=== PATIENT | female | born 1960 | race Hispanic/Latino ===

== ENCOUNTER 2018-09-19 18:32 | Emergency (ER) | payer SELFPAY ==
--- NOTE | 2018-09-19 20:36 | RAD REPORT ---
EXAM DESCRIPTION: RAD - Knee Right 3 View - 09/19/2018 8:20 pm CLINICAL HISTORY: Pain;Swelling COMPARISON: No comparisons FINDINGS: No acute fracture or dislocation of the right knee is seen. Trace suprapatellar joint flui d.
--- NOTE | 2018-09-19 21:03 | EDPHYS ---
Physician Documentation [facility] Name: Danielle Hua Age: 57 yrs Sex: Female : 1960 Arrival Date: 09/19/2018 Time: 18:35 Bed 15 Private MD: None, None ED Physician Kade Tavarez HPI: 09/19 19:51 This 57 yrs old Female presents to ER via Ambulatory with complaints of Right pm1 Knee Pain. 19:51 The patient presents with pain, swelling. The complaints affect the right knee. pm1 Context: The problem was sustained at home, resulted from Overuse , the patient can fully bear weight, the patient is able to ambulate, Problem is a result from a previous injury: No. Onset: The symptoms/episode began/occurred 3 month(s) ago. Modifying factors: The symptoms are alleviated by elevating leg, compression. the symptoms are aggravated by weight bearing, bending knee. Associated signs and symptoms: Pertinent negatives calf tenderness, fever, numbness, tingling. Treatment prior to arrival includes: adelia wrap, elevation of the extremity. Severity of symptoms: in the emergency department the symptoms are actually worse. The patient has not experienced similar symptoms in the past. Patient twisted her left knee and started having to rely on right leg to bear weight. Believes that overuse of right leg has lead towards pain to right knee . Historical: - Allergies: 19:03 No Known Allergies; aj1 - Home Meds: 19:03 None [Active]; aj1 - PMHx: 19:03 None; aj1 - PSHx: 19:03 pins in shoulder; Hysterectomy; aj1 - Immunization history:: Flu vaccine is not up to date. - Social history:: Smoking status: Patient/guardian denies using tobacco. - Ebola Screening: : Patient denies travel to an Ebola-affected area in the 21 days before illness onset. ROS: 19:51 Constitutional: Negative for fever, chills, and weight loss, Eyes: Negative for injury, pm1 pain, redness, and discharge, ENT: Negative for injury, pain, and discharge, Neck: Negative for injury, pain, and swelling, Cardiovascular: Negative for chest pain, palpitations, and edema, Respiratory: Negative for shortness of breath, cough, wheezing, and pleuritic chest pain, Abdomen/GI: Negative for abdominal pain, nausea, vomiting, diarrhea, and constipation, Back: Negative for injury and pain, : Negative for injury, bleeding, discharge, and swelling. 19:51 Skin: Negative for injury, rash, and discoloration, Neuro: Negative for headache, weakness, numbness, tingling, and seizure. 19:51 MS/extremity: Positive for pain, of the right knee, Negative for paresthesias, tingling. Exam: 19:51 Constitutional: This is a well developed, well nourished patient who is awake, alert, pm1 and in no acute distress. Head/Face: Normocephalic, atraumatic. Chest/axilla: Normal chest wall appearance and motion. Nontender with no deformity. No lesions are appreciated. Cardiovascular: Regular rate and rhythm with a normal S1 and S2. No gallops, murmurs, or rubs. Normal PMI, no JVD. No pulse deficits. Respiratory: Lungs have equal breath sounds bilaterally, clear to auscultation and percussion. No rales, rhonchi or wheezes noted. No increased work of breathing, no retractions or nasal flaring. Abdomen/GI: Soft, non-tender, with normal bowel sounds. No distension or tympany. No guarding or rebound. No evidence of tenderness throughout. Back: No spinal tenderness. No costovertebral tenderness. Full range of motion. Skin: Warm, dry with normal turgor. Normal color with no rashes, no lesions, and no evidence of cellulitis. 19:51 Musculoskeletal/extremity: Extremities: grossly normal except: noted in the right knee: tenderness, Pain with flexion greater than 90 degrees. 19:51 Neuro: Orientation: is normal, Motor: is normal, moves all fours. Vital Signs: 19:03 BP 188 / 92; Pulse 65; Resp 18; Temp 97.0; Pulse Ox 99% on R/A; Weight 120.2 kg (R); aj1 Height 5 ft. 7 in. (170.18 cm) (R); Pain 10/10; 19:03 Body Mass Index 41.50 (120.20 kg, 170.18 cm) aj1 MDM: 19:33 Patient medically screened. pm1 19:55 Data reviewed: vital signs. Data interpreted: Pulse oximetry: on room air is 99 %. pm1 Interpretation: normal. 21:01 Counseling: I had a detailed discussion with the patient and/or guardian regarding: the pm1 historical points, exam findings, and any diagnostic results supporting the discharge/admit diagnosis, radiology results, the need for outpatient follow up, to return to the emergency department if symptoms worsen or persist or if there are any questions or concerns that arise at home. 21:05 ED course: Offered patient crutches. Refused she has some a home. pm1 09/19 20:02 Order name: Knee Right 3 View XRAY; Complete Time: 20:59 pm1 Administered Medications: No medications were administered Disposition: 09/19/18 21:02 Discharged to Home. Impression: Pain in right knee, Effusion, right knee. - Condition is Stable. - Discharge Instructions: Joint Pain, Knee Effusion, Knee Pain. - Prescriptions for Tylenol- Codeine #3 300-30 mg Oral Tablet - take 2 tablets by ORAL route every 6 hours As needed; 20 tablet. Diclofenac Sodium 75 mg Oral Tablet Sustained Release - take 1 tablet by ORAL route 2 times per day; 30 tablet. - Work release form, Medication Reconciliation Form, Thank You Letter, Prescription Opioid Use form. - Follow up: Emergency Department; When: As needed; Reason: Worsening of condition. Follow up: Sushil Skaggs MD; When: 2 - 3 days; Reason: Recheck today's complaints, Continuance of care, Re-evaluation by your physician. - Problem is new. - Symptoms have improved. Addendum: 09/22/2018 07:26 Co-signature as Attending Physician, Kade Tavarez MD I agree with the assessment and c graham plan of care. Signatures: Dispatcher [employer] [facility] Asia Hall, RN RN aj1 Kade Tavarez MD MD cha Krenek, Amber, RN RN ak1 Cristopher Qureshi, CUSTOMER QUALITY SPECIALIST CUSTOMER QUALITY SPECIALIST pm1 Corrections: (The following items were deleted from the chart) 09/19 20:22 19:38 Knee Left 3 View+RAD.RAD.BRZ ordered. [facility] 21:15 21:02 09/19/2018 21:02 Discharged to Home. Impression: Pain in right knee; Effusion, ak1 right knee. Condition is Stable. Forms are Medication Reconciliation Form, Thank You Letter, Antibiotic Education, Prescription Opioid Use. Follow up: Emergency Department; When: As needed; Reason: Worsening of condition. Follow up: Sushil Skaggs; When: 2 - 3 days; Reason: Recheck today's complaints, Continuance of care, Re-evaluation by your physician. Problem is new. Symptoms have improved. pm1
--- NOTE | 2018-09-19 21:03 | ER ---
Nurse's Notes [facility] Name: Danielle Hua Age: 57 yrs Sex: Female : 1960 Arrival Date: 09/19/2018 Time: 18:35 Bed 15 Private MD: None, None Diagnosis: Pain in right knee;Effusion, right knee Presentation: 09/19 19:02 Presenting complaint: Patient states: Right knee pain since March, denies injury to aj1 right knee. Transition of care: patient was not received from another setting of care. Onset of symptoms was March 2018. Risk Assessment: Do you want to hurt yourself or someone else? Patient reports no desire to harm self or others. Initial Sepsis Screen: Does the patient meet any 2 criteria? No. Patient's initial sepsis screen is negative. Does the patient have a suspected source of infection? No. Patient's initial sepsis screen is negative. Care prior to arrival: None. 19:02 Method Of Arrival: Ambulatory aj 19:02 Acuity: SILVIA 4 aj1 Triage Assessment: 19:03 General: Appears in no apparent distress. comfortable, Behavior is calm, cooperative, aj1 appropriate for age. Pain: Complains of pain in right knee Pain currently is 10 out of 10 on a pain scale. Neuro: Level of Consciousness is awake, alert, obeys commands. Cardiovascular: Patient's skin is warm and dry. Respiratory: Airway is patent Respiratory effort is even, unlabored, Respiratory pattern is regular, symmetrical. Historical: - Allergies: 19:03 No Known Allergies; aj1 - Home Meds: 19:03 None [Active]; aj1 - PMHx: 19:03 None; aj1 - PSHx: 19:03 pins in shoulder; Hysterectomy; aj1 - Immunization history:: Flu vaccine is not up to date. - Social history:: Smoking status: Patient/guardian denies using tobacco. - Ebola Screening: : Patient denies travel to an Ebola-affected area in the 21 days before illness onset. Screenin:48 Abuse screen: Denies threats or abuse. Denies injuries from another. Nutritional ak1 screening: No deficits noted. Tuberculosis screening: No symptoms or risk factors identified. Fall Risk None identified. Assessment: 19:46 General: Appears in no apparent distress. Behavior is calm, cooperative. Pain: ak1 Complains of pain in right knee. Neuro: No deficits noted. Cardiovascular: No deficits noted. Respiratory: No deficits noted. GI: No signs and/or symptoms were reported involving the gastrointestinal system. : No signs and/or symptoms were reported regarding the genitourinary system. EENT: No signs and/or symptoms were reported regarding the EENT system. Derm: No signs and/or symptoms reported regarding the dermatologic system. Musculoskeletal: Range of motion: limited in right knee Swelling present in right knee Reports pain in right knee. Vital Signs: 19:03 BP 188 / 92; Pulse 65; Resp 18; Temp 97.0; Pulse Ox 99% on R/A; Weight 120.2 kg (R); aj1 Height 5 ft. 7 in. (170.18 cm) (R); Pain 10/10; 19:03 Body Mass Index 41.50 (120.20 kg, 170.18 cm) aj1 ED Course: 18:35 Patient arrived in ED. mr 18:35 None, None is Private Physician. mr 19:03 Triage completed. aj1 19:03 Arm band placed on Patient placed in waiting room, Patient notified of wait time. aj1 19:29 Cristopher Qureshi, KIKO is PHCP. pm1 19:29 Kade Tavarez MD is Attending Physician. pm1 19:46 Milla Mclaughlin, DOMENIC is Primary Nurse. ak1 19:49 Patient has correct armband on for positive identification. Bed in low position. Call ak1 light in reach. Side rails up X 1. Pulse ox on. NIBP on. 19:49 No provider procedures requiring assistance completed. ak1 20:22 Knee Right 3 View XRAY In Process Unspecified. EDMS 21:01 Sushil Skaggs MD is Referral Physician. pm1 21:09 Patient did not have IV access during this emergency room visit. ak1 Administered Medications: No medications were administered Outcome: 21:02 Discharge ordered by . pm1 21:09 Discharged to home ambulatory. ak1 21:09 Condition: stable 21:15 Discharge instructions given to patient, Instructed on discharge instructions, follow ak1 up and referral plans. no drinking with medication, no driving heavy equipment, medication usage, Demonstrated understanding of instructions, follow-up care, medications, Prescriptions given X 2. 21:15 Patient left the ED. ak1 Signatures: Dispatcher [employer] Asia Monahan, RN RN aj1 Benjamin, Catie mr Milla Mclaughlin, RN RN ak1 Cristopher Qureshi, SET DESIGNER SET DESIGNER pm1
== END 2018-09-19 21:15 | disposition home or self-care (01) ==
LOC: ER 18:32
DX: M25.561 Pain in right knee (principal); M25.461 Effusion, right knee
CPT/HCPCS: 99283

== ENCOUNTER 2019-01-24 09:48 | Emergency (ER) | payer SELFPAY ==
[2019-01-24 10:14] LABS: Absolute Lymphocytes (CBC) 1.4 K/uL (0.7-4.9); Absolute Monocytes 0.6 K/uL (0.1-1.3); Absolute Neutrophil 3.9 K/uL (1.8-8.0); Basophils % 1.4 % (0-1.3); Eosinophils % 4.8 % (0-4.4); Hematocrit 31.5 % (36.0-45.0); Lymphocytes % 22.6 % (15.3-44.8); RBC Red Blood Cell Count 4.45 M/uL (3.86-4.86)
[2019-01-24 10:17] LABS: Protime INR 1.11
[2019-01-24] MEDS ORDERED: ASPIRIN 81 MG CHEWABLE TABLET ONE (10:20)
--- NOTE | 2019-01-24 10:24 | RAD REPORT ---
EXAM DESCRIPTION: Denise Single View01/24/2019 10:14 am CLINICAL HISTORY: Chest pain COMPARISON: none FINDINGS: The lungs appear clear of acute infiltrate. The heart is normal size IMPRESSION: No acute abnormalities displayed
[2019-01-24 10:27] LABS: ALT/SGPT 27 U/L (12-78); AST/SGOT 18 U/L (15-37); Albumin 3.6 g/dL (3.4-5.0); Alkaline Phosphatase 96 U/L (45-117); BUN Blood Urea Nitrogen 13 mg/dL (7-18); Bicarbonate 29 mmol/L (21-32); Bilirubin Direct 0.2 mg/dL (0-0.2); Bilirubin Total 0.6 mg/dL (0.2-1.0); Glucose Level 116 mg/dL (74-106); Magnesium 1.8 mg/dL (1.8-2.4); NT PRO-BNP 97 pg/mL (<125); Potassium 3.1 mmol/L (3.5-5.1); Protein, Total 7.6 g/dL (6.4-8.2); Sodium Level 142 mmol/L (136-145); Troponin (Emerg Dept Use Only) < 0.02 ng/mL (0.0-0.045)
--- NOTE | 2019-01-24 11:04 | RAD REPORT ---
EXAM DESCRIPTION: CT - Chest For Pe Angio - 01/24/2019 10:48 am CLINICAL HISTORY: Chest pain COMPARISON: None. TECHNIQUE: Dynamically enhanced axial 3 mm thick images of the chest were obtained during administra tion of <100> mL Isovue 370 IV contrast. Coronal and oblique reconstruction images were generated and reviewed. Exam utilizes a protocol for optimal evaluation of pulmonary arterial tree. Maximum intensity projections 3D imaging was utilized All CT scans are performed using dose optimization technique as appropriate and may include automated exposure control or mA/KV adjustment according to patient size. FINDINGS: A pulmonary embolus is not seen. A thoracic aortic aneurysm is not noted. A pleural effusion is not seen. A pericardial effusion is not seen. A lung consolidation is not present. Heart is mildly enlarged. Moderate hiatal hernia IMPRESSION: Negative for a pulmonary embolism.
[2019-01-24 11:20] LABS: Creatine Phosphokinase 231 U/L (26-192)
[2019-01-24] MEDS ORDERED: POTASSIUM CL SA 10 MEQ TAB PO ONE (11:42)
[2019-01-24] MEDS ORDERED: NA CHLORIDE 0.9% 1,000 ML ONE (11:43)
--- NOTE | 2019-01-24 14:46 | ER ---
Nurse's Notes [facility] Name: Danielle Hua Age: 58 yrs Sex: Female : 1960 Arrival Date: 01/24/2019 Time: 09:54 Bed 8 Private MD: Diagnosis: Chest pain, unspecified;Dizziness and giddiness Presentation: 01/24 09:54 Presenting complaint: EMS states: SOB, chest pressure, and dizziness x 1 hr. Transition hb of care: patient was not received from another setting of care. Onset of symptoms was January 24, 2019. Risk Assessment: Do you want to hurt yourself or someone else? Patient reports no desire to harm self or others. Initial Sepsis Screen: Does the patient meet any 2 criteria? No. Patient's initial sepsis screen is negative. Does the patient have a suspected source of infection? No. Patient's initial sepsis screen is negative. Care prior to arrival: None. 09:54 Method Of Arrival: EMS: [facility] hb 09:54 Acuity: SILVIA 3 hb Triage Assessment: 15:00 Respiratory: Reports Onset: The symptoms/episode began/occurred gradually, the patient rv has mild shortness of breath. 15:00 General: Appears in no apparent distress. rv Historical: - Allergies: 09:56 No Known Allergies; hb - Home Meds: 09:56 None [Active]; hb - PMHx: 09:56 None; hb - Immunization history:: Adult Immunizations up to date. - Social history:: Smoking status: Patient/guardian denies using tobacco. - Ebola Screening: : No symptoms or risks identified at this time. Screenin:59 Abuse screen: Denies threats or abuse. Denies injuries from another. Nutritional hb screening: No deficits noted. Tuberculosis screening: No symptoms or risk factors identified. Fall Risk None identified. Assessment: 10:00 General: Appears in no apparent distress. Behavior is calm, cooperative. Pain: Pain hb currently is 2 out of 10 on a pain scale. Neuro: Level of Consciousness is awake, alert, obeys commands, Oriented to person, place, time, situation. Cardiovascular: Capillary refill < 3 seconds Patient's skin is warm and dry. Rhythm is regular. Respiratory: Airway is patent Respiratory effort is even, unlabored, Respiratory pattern is regular, symmetrical, Breath sounds are clear bilaterally. GI: No signs and/or symptoms were reported involving the gastrointestinal system. : No signs and/or symptoms were reported regarding the genitourinary system. EENT: No signs and/or symptoms were reported regarding the EENT system. Derm: Skin is intact, is healthy with good turgor, Skin is pink, warm \T\ dry. normal. Musculoskeletal: No signs and/or symptoms reported regarding the musculoskeletal system. 11:00 Reassessment: Patient appears in no apparent distress at this time. No changes from previously documented assessment. Patient and/or family updated on plan of care and expected duration. Pain level reassessed. Patient is alert, oriented x 3, equal unlabored respirations, skin warm/dry/pink. 12:00 Reassessment: Patient appears in no apparent distress at this time. Patient and/or hb family updated on plan of care and expected duration. Pain level reassessed. Patient is alert, oriented x 3, equal unlabored respirations, skin warm/dry/pink. 13:00 Reassessment: Patient appears in no apparent distress at this time. Patient and/or hb family updated on plan of care and expected duration. Pain level reassessed. Patient is alert, oriented x 3, equal unlabored respirations, skin warm/dry/pink. Vital Signs: 09:51 BP 131 / 62 Supine; Pulse 86; Resp 16; Temp 97.8; Pulse Ox 100% on R/A; Weight 111.58 hb kg; Height 5 ft. 4 in. (162.56 cm); Pain 2/10; 09:55 BP 145 / 71 Sitting; Pulse 92; hb 09:59 BP 136 / 73 Standing; Pulse 88; hb 11:32 BP 132 / 67; Pulse 88; Resp 15; Pulse Ox 100% on R/A; hb 12:30 BP 157 / 78; Pulse 84; Resp 14; Pulse Ox 99% on R/A; hb 13:23 BP 158 / 68; Pulse 80; Resp 15; Pulse Ox 100% on R/A; Pain 1/10; hb 15:46 BP 145 / 66; Pulse 84; Resp 17; Temp 98; Pulse Ox 99% ; rv 09:51 Body Mass Index 42.22 (111.58 kg, 162.56 cm) ED Course: 09:54 Patient arrived in ED. hb 09:55 Triage completed. hb 09:55 Lydia Eubanks FNP-C is [facility]. kb 09:55 Ankush Osorio MD is Attending Physician. kb 09:59 Arm band placed on. hb 09:59 Patient has correct armband on for positive identification. Bed in low position. Call hb light in reach. Side rails up X 1. 10:00 Inserted saline lock: 20 gauge in right antecubital area, using aseptic technique. hb Blood collected. 10:14 XRAY Chest (1 view) In Process Unspecified. EDMS 10:15 Vicki Alvarez, RN is Primary Nurse. hb 10:41 Basic Metabolic Panel Sent. hb 10:41 CBC with Diff Sent. hb 10:45 CT completed. Patient tolerated procedure well. Patient moved back from CT. ls3 10:50 CT Chest For PE Angio In Process Unspecified. EDMS 15:47 No provider procedures requiring assistance completed. IV discontinued, intact, rv bleeding controlled, No redness/swelling at site. Pressure dressing applied. Administered Medications: 10:09 Drug: Aspirin Chewable Tablet 324 mg Route: PO; hb 11:00 Follow up: Response: No adverse reaction hb 11:31 Drug: Potassium Chloride 40 mEq Route: PO; hb 12:20 Follow up: Response: No adverse reaction hb 11:31 Drug: NS 0.9% 1000 ml Route: IV; Rate: 1000 ml; Site: right antecubital; hb 15:47 Follow up: IV Status: Completed infusion; IV Intake: 1000ml rv Intake: 15:47 IV: 1000ml; Total: 1000ml. rv Outcome: 14:46 Discharge ordered by . kb 15:47 Discharged to home ambulatory. rv 15:47 Condition: good 15:47 Discharge instructions given to patient, Instructed on discharge instructions, follow up and referral plans. Demonstrated understanding of instructions, follow-up care. 15:49 Patient left the ED. rv Signatures: Dispatcher [employer] EDDE Lydia Eubanks FNP-C SURVEILLANCE INSPECTOR-Ckb Vicki Alvarez, RN DOMENIC Wil Beck RN RN rv Jonnathan Serrano ls3
--- NOTE | 2019-01-24 14:47 | EDPHYS ---
Physician Documentation [facility] Name: Danielle Hua Age: 58 yrs Sex: Female : 1960 Arrival Date: 01/24/2019 Time: 09:54 Bed 8 Private MD: ED Physician Ankush Osorio HPI: 01/24 13:32 This 58 yrs old Female presents to ER via EMS with complaints of Shortness Of kb Breath, Chest Pressure. 13:32 The patient or guardian reports chest pain that is located primarily in the chest kb diffusely. Onset: just prior to arrival. The pain does not radiate. Associated signs and symptoms: Pertinent positives: dizziness, shortness of breath. The chest pain is described as a heaviness. Duration: The patient or guardian reports a single episode, that is now resolved, that lasted 20 minute(s). Modifying factors: The symptoms are alleviated by nothing. the symptoms are aggravated by nothing. Severity of pain: At its worst the pain was moderate in the emergency department the pain has resolved. The patient has not experienced similar symptoms in the past. The patient has not recently seen a physician. Pt reports she was changing the liter box and started having shortness of breath, chest pain and lightheadedness. Went to neighbors house and they called 911. Reports symptoms are now resolved, but when she stands up she feels lightheaded again. Historical: - Allergies: 09:56 No Known Allergies; hb - Home Meds: 09:56 None [Active]; hb - PMHx: 09:56 None; hb - Immunization history:: Adult Immunizations up to date. - Social history:: Smoking status: Patient/guardian denies using tobacco. - Ebola Screening: : No symptoms or risks identified at this time. ROS: 10:10 Constitutional: Negative for fever, chills, and weight loss, ENT: Negative for injury, kb pain, and discharge, Neck: Negative for injury, pain, and swelling, Abdomen/GI: Negative for abdominal pain, nausea, vomiting, diarrhea, and constipation, Back: Negative for injury and pain, : Negative for injury, bleeding, discharge, and swelling, MS/Extremity: Negative for injury and deformity, Skin: Negative for injury, rash, and discoloration. 10:10 Cardiovascular: Positive for chest pain, Negative for edema, orthopnea, palpitations, paroxysmal nocturnal dyspnea. 10:10 Respiratory: Positive for shortness of breath, Negative for cough, dyspnea on exertion, hemoptysis, orthopnea, pleurisy, sputum production, wheezing. 10:10 Neuro: Positive for dizziness. Exam: 10:09 Constitutional: This is a well developed, well nourished patient who is awake, alert, kb and in no acute distress. Head/Face: Normocephalic, atraumatic. Neck: Trachea midline, no thyromegaly or masses palpated, and no cervical lymphadenopathy. Supple, full range of motion without nuchal rigidity, or vertebral point tenderness. No Meningismus. Chest/axilla: Normal chest wall appearance and motion. Nontender with no deformity. No lesions are appreciated. Cardiovascular: Regular rate and rhythm with a normal S1 and S2. No gallops, murmurs, or rubs. Normal PMI, no JVD. No pulse deficits. Respiratory: Lungs have equal breath sounds bilaterally, clear to auscultation and percussion. No rales, rhonchi or wheezes noted. No increased work of breathing, no retractions or nasal flaring. Abdomen/GI: Soft, non-tender, with normal bowel sounds. No distension or tympany. No guarding or rebound. No evidence of tenderness throughout. Skin: Warm, dry with normal turgor. Normal color with no rashes, no lesions, and no evidence of cellulitis. MS/ Extremity: Pulses equal, no cyanosis. Neurovascular intact. Full, normal range of motion. Neuro: Awake and alert, GCS 15, oriented to person, place, time, and situation. Cranial nerves II-XII grossly intact. Motor strength 5/5 in all extremities. Sensory grossly intact. Cerebellar exam normal. Normal gait. 10:09 ECG was reviewed by the Attending Physician. Vital Signs: 09:51 BP 131 / 62 Supine; Pulse 86; Resp 16; Temp 97.8; Pulse Ox 100% on R/A; Weight 111.58 hb kg; Height 5 ft. 4 in. (162.56 cm); Pain 2/10; 09:55 BP 145 / 71 Sitting; Pulse 92; hb 09:59 BP 136 / 73 Standing; Pulse 88; hb 11:32 BP 132 / 67; Pulse 88; Resp 15; Pulse Ox 100% on R/A; hb 12:30 BP 157 / 78; Pulse 84; Resp 14; Pulse Ox 99% on R/A; hb 13:23 BP 158 / 68; Pulse 80; Resp 15; Pulse Ox 100% on R/A; Pain 1/10; hb 15:46 BP 145 / 66; Pulse 84; Resp 17; Temp 98; Pulse Ox 99% ; rv 09:51 Body Mass Index 42.22 (111.58 kg, 162.56 cm) hb MDM: 09:55 Patient medically screened. kb 10:11 Data reviewed: vital signs, nurses notes. Data interpreted: Pulse oximetry: on room air kb is 100 %. Interpretation: normal. 14:45 The patient was given aspirin in the Emergency Department. JONAS Risk Score: TOTAL SCORE kb = 0. Counseling: I had a detailed discussion with the patient and/or guardian regarding: the historical points, exam findings, and any diagnostic results supporting the discharge/admit diagnosis, lab results, radiology results, the need for outpatient follow up, a family practitioner, to return to the emergency department if symptoms worsen or persist or if there are any questions or concerns that arise at home. 01/24 09:56 Order name: Basic Metabolic Panel kb 01/24 09:56 Order name: CBC with Diff kb 01/24 09:56 Order name: LFT's; Complete Time: 11:20 kb 01/24 09:56 Order name: Magnesium; Complete Time: 11:20 kb 01/24 09:56 Order name: NT PRO-BNP; Complete Time: 11:20 kb 01/24 09:56 Order name: PT-INR; Complete Time: 10:26 kb 01/24 09:56 Order name: Troponin (emerg Dept Use Only); Complete Time: 11:20 kb 01/24 09:56 Order name: D-Dimer; Complete Time: 10:26 kb 01/24 09:57 Order name: Basic Metabolic Panel; Complete Time: 11:20 EDMS 01/24 09:57 Order name: CBC with Automated Diff; Complete Time: 10:26 EDMS 01/24 11:08 Order name: Creatine Phosphokinase; Complete Time: 11:20 EDMS 01/24 14:04 Order name: Troponin (emerg Dept Use Only); Complete Time: 14:45 kb 01/24 09:56 Order name: XRAY Chest (1 view); Complete Time: 10:26 kb 01/24 09:56 Order name: EKG; Complete Time: 09:57 kb 01/24 09:56 Order name: Cardiac monitoring; Complete Time: 10: kb 01/24 09:56 Order name: EKG - Nurse/Tech; Complete Time: 10: kb 01/24 09:56 Order name: IV Saline Lock; Complete Time: 10:09 kb 01/24 09:56 Order name: Labs collected and sent; Complete Time: 10: kb 01/24 09:56 Order name: O2 Per Protocol; Complete Time: 10: kb 01/24 09:56 Order name: O2 Sat Monitoring; Complete Time: 10: kb 01/24 10:27 Order name: CT Chest For PE Angio; Complete Time: 11:05 kb 0608 12:03 Order name: Repeat Cardiac Enzymes at: 1400; Complete Time: 14:48 kb 08 12:03 Order name: EKG - Nurse/Tech; Complete Time: 14:48 kb 08 12:03 Order name: EKG; Complete Time: 12:04 kb EC:09 Rate is 76 beats/min. Rhythm is regular, Normal Sinus Rhythm. QRS Carpenter is Normal. NE kb interval is normal at 162 msec. QRS interval is normal at 92 msec. QT interval is normal at 418 msec. Interpreted by me. Reviewed by me. Administered Medications: 10:09 Drug: Aspirin Chewable Tablet 324 mg Route: PO; hb 11:00 Follow up: Response: No adverse reaction hb 11:31 Drug: Potassium Chloride 40 mEq Route: PO; hb 12:20 Follow up: Response: No adverse reaction hb 11:31 Drug: NS 0.9% 1000 ml Route: IV; Rate: 1000 ml; Site: right antecubital; hb 15:47 Follow up: IV Status: Completed infusion; IV Intake: 1000ml rv Disposition: 01/25 07:04 Co-signature as Attending Physician, Ankush Osorio MD. rn Disposition: 01/24/19 14:46 Discharged to Home. Impression: Chest pain, unspecified, Dizziness and giddiness. - Condition is Stable. - Discharge Instructions: Nonspecific Chest Pain, [id number], Dizziness, [id number]. - Medication Reconciliation Form, Thank You Letter, Antibiotic Education, Prescription Opioid Use form. - Follow up: Emergency Department; When: As needed; Reason: Worsening of condition. Follow up: Private Physician; When: 2 - 3 days; Reason: Recheck today's complaints, Continuance of care, Re-evaluation by your physician. Signatures: Dispatcher [employer] [facility] Lydia Eubanks, SPRAY PAINTER-C SPRAY PAINTER-CkAnkush Rodriguez MD MD rn Baxter, Heather, RN RN hb Wil Beck RN RN rv Corrections: (The following items were deleted from the chart) 01/24 14:00 11:07 CREATINE PHOSPHOKINASE+C.LAB.BRZ ordered. [facility] 14:00 12:04 TROPONIN (EMERG DEPT USE ONLY)+C.LAB.BRZ ordered. [facility] 14:46 14:46 01/24/2019 14:46 Discharged to Home. Impression: Chest pain, unspecified. kb Condition is Stable. Forms are Medication Reconciliation Form, Thank You Letter, Antibiotic Education, Prescription Opioid Use. Follow up: Emergency Department; When: As needed; Reason: Worsening of condition. Follow up: Private Physician; When: 2 - 3 days; Reason: Recheck today's complaints, Continuance of care, Re-evaluation by your physician. kb 15:49 14:46 01/24/2019 14:46 Discharged to Home. Impression: Chest pain, unspecified; rv Dizziness and giddiness. Condition is Stable. Discharge Instructions: Nonspecific Chest Pain, [id number]. Forms are Medication Reconciliation Form, Thank You Letter, Antibiotic Education, Prescription Opioid Use. Follow up: Emergency Department; When: As needed; Reason: Worsening of condition. Follow up: Private Physician; When: 2 - 3 days; Reason: Recheck today's complaints, Continuance of care, Re-evaluation by your physician. kb
--- NOTE | 2019-01-25 07:56 | EKG ---
Test Date: 2019-01-24 Test Time: 14:11:30 Bill Collector: HB MEASUREMENT RESULTS: Intervals: Rate: 60 DC: 158 QRSD: 92 QT: 474 QTc: 474 [place]: P: 22 DC: 158 QRS: 16 T: 82 INTERPRETIVE STATEMENTS: Normal sinus rhythm Cannot rule out Inferior infarct, age undetermined Possible Anterior infarct, age undetermined Abnormal ECG Compared to ECG 01/24/2019 10:05:57 No significant changes Electronically Signed On 01-25-19 07:53:01 CDT by Hardik Urban
--- NOTE | 2019-01-25 07:56 | EKG ---
Test Date: 2019-01-24 Test Time: 10:05:57 Video Clerk: HB MEASUREMENT RESULTS: Intervals: Rate: 76 OK: 162 QRSD: 92 QT: 418 QTc: 470 [place]: P: 8 OK: 162 QRS: 13 T: 101 INTERPRETIVE STATEMENTS: Normal sinus rhythm Possible Inferior infarct, age undetermined Anterior infarct, age undetermined Abnormal ECG No previous ECG available for comparison Electronically Signed On 01-25-19 07:53:06 CDT by aHrdik Urban
== END 2019-01-24 15:49 | disposition home or self-care (01) ==
LOC: ER 09:48
DX: R07.9 Chest pain, unspecified (principal); R42 Dizziness and giddiness
CPT/HCPCS: 36415; 71045; 71275; 80048; 80076; 82550; 83735; 83880; 84484; 85025; 85379; 85610; 93005; 96360; 96361; 99284; J7030; Q9967